=== PATIENT | female | born 1960 | race Native Hawaiian/Other Pacific Islander ===

== ENCOUNTER 2017-02-03 14:05 | Emergency (ER) | payer OTHER ==
[~2017-02-03] VITALS: Ht 160 cm; Wt 72.6 kg
[2017-02-03] MEDS ORDERED: GLIPIZIDE (14:18)
[2017-02-03] MEDS ORDERED: MECLIZINE (14:18)
[2017-02-03] MEDS ORDERED: METFORMIN (14:18)
--- NOTE | 2017-02-03 14:20 | NUR ---
Pt placed in [facility] in [facility], no ER beds available at this time.
--- NOTE | 2017-02-03 14:35 | NUR ---
MSE DONE BY DR SERRANO. PATIENT A & O X4.
--- NOTE | 2017-02-03 14:40 | NUR ---
Pt to CT via [facility].
[2017-02-03 14:50] LABS: BASOPHILS % (AUTO) 0.7 % (0.0-2.0); EOSINOPHILS # (AUTO) 0.2 K/uL (0.0-0.7); EOSINOPHILS % (AUTO) 2.5 % (0.0-7.0); LYMPHOCYTES # (AUTO) 1.3 K/uL (20.0-40.0); LYMPHOCYTES % (AUTO) 20.6 % (20.5-51.5); MEAN CORPUSCULAR HEMOGLOBIN 27.2 uug (24.7-32.8); MEAN CORPUSCULAR HGB CONC 33 g/dL (32.3-35.6); MEAN CORPUSCULAR VOLUME 81.7 fL (75.5-95.3); MONOCYTES # (AUTO) 0.4 K/uL (2.0-10.0); MONOCYTES % (AUTO) 6.8 % (0.0-11.0); NEUTROPHILS # (AUTO) 4.4 K/uL (1.8-8.9); NEUTROPHILS % (AUTO) 69.4 % (38.5-71.5); PLATELET COUNT (AUTO) 287 K/uL (179-408); RED BLOOD CELL COUNT(AUTO) 4.41 MIL/uL (3.63-4.92); WHITE BLOOD COUNT (AUTO) 6.4 K/uL (3.8-11.8)
[2017-02-03 14:58] LABS: POTASSIUM 4.1 mmol/L (3.5-5.1)
[2017-02-03 15:10] LABS: BILIRUBIN,DIRECT 0.1 mg/dL (0.0-0.2); BILIRUBIN,TOTAL 0.2 mg/dL (0.2-1.0); TOTAL PROTEIN, SERUM 7.5 g/dL (6.4-8.2)
[2017-02-03 16:35] VITALS: BP 141/90
--- NOTE | 2017-02-03 16:36 | NUR ---
Patient discharged to home in stable conditon. Written and verbal after care instructions given. Patient verbalizes understanding of instructions.
== END 2017-02-03 16:36 | disposition home or self-care (01) ==
LOC: ER 14:05
DX: H81.09 Meniere's disease, unspecified ear (principal); I10 Essential (primary) hypertension; E11.9 Type 2 diabetes mellitus without complications; Z79.84 Long term (current) use of oral hypoglycemic drugs
CPT/HCPCS: 36415; 70450; 71010; 80048; 80076; 83880; 84484; 85025; 85730; 93005; 99285; A4663; 70030-TC